=== PATIENT | male | born 1980 | race Two or more races ===

== ENCOUNTER 2018-04-24 11:49 | Inpatient (IN) | payer MEDICAID ==
[~2018-04-24] VITALS: Ht 175.3 cm; Wt 113.4 kg
[2018-04-24 12:07] VITALS: Ht 175.3 cm; Wt 113.4 kg
[2018-04-24 16:07] LABS: BASOPHIL % 0.1 % (0-2); PLATELET COUNT 281 x10^3mcL (130-400)
[2018-04-24 16:24] LABS: CALCIUM 8.3 mg/dL (8.5-10.1); CHLORIDE SERUM 102 mmol/L (98-107); GFR1 > 60 mL/min; GLUCOSE SERUM 138 mg/dL (74-106); POTASSIUM SERUM 3.4 mmol/L (3.5-5.1); SODIUM SERUM 138 mmol/L (136-145)
[2018-04-24 16:29] LABS: ALBUMIN 3.4 g/dL (3.4-5.0); ALKALINE PHOSPHATASE 74 U/L (46-116); ALT/SGPT 56 U/L (16-63); AST/SGOT 18 U/L (15-37); BILIRUBIN TOTAL 0.76 mg/dL (0.20-1.00); TOTAL PROTEIN, SERUM 7.8 g/dL (6.4-8.2)
[2018-04-24 17:28] LABS: CHOLESTEROL/HDL RATIO 3.5; MAGNESIUM 1.7 mg/dL (1.8-2.4); PHOSPHOROUS 2.4 mg/dL (2.5-4.9)
[2018-04-24 17:51] LABS: UA SPECIFIC GRAVITY <=1.005 (1.005-1.035); microscopic required? YES; urine erythrocyte TRACE (NEGATIVE)
[2018-04-24 18:05] VITALS: BP 139/69
[2018-04-24 18:17] VITALS: BP 107/56
[2018-04-24 20:40] VITALS: BP 129/73
[2018-04-25] VITALS (7 sets, daily range): BP systolic 110–149; BP diastolic 55–82
[2018-04-25 07:56] LABS: BASOPHIL % 0.1 % (0-2); PLATELET COUNT 279 x10^3mcL (130-400); RED CELL DISTRIBUTION WIDTH 12.6 % (11.5-14.5)
[2018-04-25 08:01] LABS: CALCIUM 8.5 mg/dL (8.5-10.1); CARBON DIOXIDE 26.2 mmol/L (21-32); CHLORIDE SERUM 109 mmol/L (98-107); CREATININE SERUM 0.8 mg/dL (0.7-1.3); GFR1 > 60 mL/min; GLUCOSE SERUM 122 mg/dL (74-106); POTASSIUM SERUM 4.5 mmol/L (3.5-5.1); SODIUM SERUM 143 mmol/L (136-145)
[2018-04-26 05:38] VITALS: BP 140/88
[2018-04-26 06:58] LABS: PLATELET COUNT 315 x10^3mcL (130-400); RED CELL DISTRIBUTION WIDTH 13.2 % (11.5-14.5)
[2018-04-26 07:13] LABS: BASOPHIL % 0 % (0-2)
[2018-04-26 07:24] LABS: CALCIUM 8.8 mg/dL (8.5-10.1); CARBON DIOXIDE 26.5 mmol/L (21-32); CHLORIDE SERUM 106 mmol/L (98-107); CREATININE SERUM 0.8 mg/dL (0.7-1.3); GFR1 > 60 mL/min; GLUCOSE SERUM 139 mg/dL (74-106); PHOSPHOROUS 4.2 mg/dL (2.5-4.9); POTASSIUM SERUM 4.4 mmol/L (3.5-5.1); SODIUM SERUM 141 mmol/L (136-145)
[2018-04-26 10:21] VITALS: BP 135/75
[2018-04-26] MEDS ORDERED: MEDDP PO (12:37)
[2018-04-26] MEDS ORDERED: LEVAQUIN750 MG PO (12:37)
[2018-04-26] MEDS ORDERED: PROAIR HFA8.5 GM IH (12:38)
[2018-04-26] MEDS ORDERED: TAM75 PO (12:39)
[2018-04-26 13:15] VITALS: BP 135/75
== END 2018-04-26 14:29 | disposition home or self-care (01) | DRG 113 ==
LOC: ED 11:49 → DU 15:47
PROVIDERS: Emergency Medicine; General Practice; ADMIT Internal Medicine
DX: J11.1 Influenza due to unidentified influenza virus with other respiratory manifestations (principal); J96.01 Acute respiratory failure with hypoxia; E87.2 Acidosis; E83.39 Other disorders of phosphorus metabolism; E87.6 Hypokalemia; E83.42 Hypomagnesemia; Z68.36 Body mass index [BMI] 36.0-36.9, adult
CPT/HCPCS: 36600; 83880; 87804; 94150; J1956; J2920; J2930; J7030; J7613; J7620; J7626; J7644